=== PATIENT | male | born 1995 | race Caucasian/White ===

== ENCOUNTER 2021-02-19 20:17 | Emergency (ER) | payer OTHER ==
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
[2021-02-19] MEDS ORDERED: Ibuprofen 800 MG Tab PO ONE (20:28)
[2021-02-19 20:53] LABS: BLOOD UREA NITROGEN,BUN 16 mg/dL (7.0-18.0); CARBON DIOXIDE,CO2 27.4 mmol/L (21.0-32.0); CHLORIDE,CL 103 mmol/L (98-107); GLUCOSE RANDOM 105 mg/dL (74-106); POTASSIUM,K 3.4 mmol/L (3.5-5.1); SODIUM,NA 139 mmol/L (136-148)
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
== END 2021-02-19 23:58 | disposition home or self-care (01) ==
LOC: MW.ED 20:17
DX: S83.92XA Sprain of unspecified site of left knee, initial encounter (principal); V49.40XA Driver injured in collision with unspecified motor vehicles in traffic accident, initial encounter
CPT/HCPCS: 36415; 73562; 73590; 73610; 80048; 80307; 85025; 99284; A9270; 99282

== ENCOUNTER 2021-10-04 11:01 | Emergency (ER) | payer BC ==
[2021-10-04 11:51] LABS: CORONAVIRUS COVID-19 NAA POSITIVE (NEGATIVE); INFLUENZA A NAA NEGATIVE (NEGATIVE); INFLUENZA B NAA NEGATIVE (NEGATIVE)
== END 2021-10-04 12:31 | disposition home or self-care (01) ==
LOC: MW.ED 11:01
DX: U07.1 COVID-19 (principal)
CPT/HCPCS: 0240U; 87651; 99283

== ENCOUNTER 2022-05-22 12:47 | Emergency (ER) | payer BC ==
[2022-05-22] MEDS ORDERED: Amoxicillin/Clavulanate K 875-125 MG Tab PO ONE (12:58)
[2022-05-22] MEDS ORDERED: Bacitracin Oint 1 GM U/D Packet TOP ONE (12:58)
[2022-05-22] MEDS ORDERED: Diphtheria,Pertussis(Acell),Tetanus Vaccine 0.5 ML Syringe IM ONE (12:58)
== END 2022-05-22 13:20 | disposition home or self-care (01) ==
LOC: MW.ED 12:47
DX: S01.25XA Open bite of nose, initial encounter (principal); Z23 Encounter for immunization; W54.0XXA Bitten by dog, initial encounter
CPT/HCPCS: 90471; 90715; 99283; A9270

== ENCOUNTER 2023-08-18 18:38 | Emergency (ER) | payer BC ==
[2023-08-18] MEDS ORDERED: Acetaminophen/HYDROcodone 325-5 MG Tab PO ONE (18:56)
[2023-08-18] MEDS ORDERED: Ondansetron 4 MG Tab.DIS PO ONE (18:56)
== END 2023-08-18 20:50 | disposition home or self-care (01) ==
LOC: MW.ED 18:38
DX: S62.617A Displaced fracture of proximal phalanx of left little finger, initial encounter for closed fracture (principal); W23.0XXA Caught, crushed, jammed, or pinched between moving objects, initial encounter
CPT/HCPCS: 29125; 73130; 99283; A9270

== ENCOUNTER 2023-09-08 23:05 | Emergency (ER) | payer BC ==
[2023-09-08] MEDS ORDERED: Sodium Chloride 0.9% 10 ML Syringe FLUSH PRN (23:16)
[2023-09-08] MEDS ORDERED: Sodium Chloride 0.9% 2.5 ML Syringe FLUSH PRN (23:16)
[2023-09-08] MEDS ORDERED: Sodium Chloride 0.9% 1,000 ML IV ONE (23:17)
[2023-09-08 23:23] LABS: BASOPHILS ABSOLUTE AUTO 0.04 K/uL (0.00-0.20); BASOPHILS PERCENT AUTO 0.3 % (0.0-1.0); EOSINOPHILS ABSOLUTE AUTO 0.16 K/uL (0.00-0.45); EOSINOPHILS PERCENT AUTO 1.1 % (0.0-6.0); HEMATOCRIT 42.6 % (42.0-52.0); HEMOGLOBIN 15.4 g/dL (14.0-18.0); IMMATURE GRAN ABSOLUTE AUTO 0.04 K/uL (0.00-0.05); IMMATURE GRAN PERCENT AUTO 0.3 % (0.0-0.4); LYMPHOCYTES ABSOLUTE AUTO 1.02 K/uL (1.00-4.80); LYMPHOCYTES PERCENT AUTO 7.2 % (24.0-44.0); MEAN CORPUSCULAR HEMOGLOBIN 32.9 pg (28.0-32.0); MEAN CORPUSCULAR HGB CONC 36.2 g/dL (32.0-36.0); MEAN PLATELET VOLUME 8.9 fL (9.4-12.4); MONOCYTES ABSOLUTE AUTO 1.01 K/uL (0.00-0.80); MONOCYTES PERCENT AUTO 7.1 % (0.0-8.0); NEUTROPHILS ABSOLUTE AUTO 11.91 K/uL (1.80-7.70); PLATELET COUNT,PLT 333 K/uL (150-400); RED BLOOD CELL COUNT 4.68 M/uL (4.52-5.90); WHITE BLOOD CELL COUNT,WBC 14.18 K/uL (3.9-11.3)
[2023-09-08 23:30] LABS: INR 1.02 (0.86-1.11)
[2023-09-08] MEDS ORDERED: Iopamidol 755 MG/ML 500 ML Multipack Bottle IVPUSH ONE (23:40)
[2023-09-08 23:49] LABS: A/G RATIO 1.3 (0.9-1.6); ALANINE AMINOTRANSFERASE,ALT 25 IU/L (14-63); ALBUMIN 4.5 g/dL (3.4-5.0); ALKALINE PHOSPHATASE 90 U/L (46-116); ASPARTATE AMNIOTRANSFERASE,AST 18 IU/L (15-37); BILIRUBIN TOTAL 0.7 mg/dL (0.2-1.0); BLOOD UREA NITROGEN,BUN 13 mg/dL (7.0-18.0); CALCIUM 9.6 mg/dL (8.5-10.1); CARBON DIOXIDE,CO2 23.8 mmol/L (21.0-32.0); CHLORIDE,CL 101 mmol/L (98-107); CREATININE 1.3 mg/dL (0.8-1.3); GLUCOSE RANDOM 92 mg/dL (74-106); POTASSIUM,K 3.1 mmol/L (3.5-5.1); PROTEIN TOTAL,TP 7.9 g/dL (6.4-8.2); SODIUM,NA 139 mmol/L (136-148)
[2023-09-08 23:50] LABS: ESTIMATED GFR 77 mL/min (>60)
[2023-09-09] MEDS ORDERED: Sodium Chloride 0.9% 1,000 ML IV ONE (02:00)
[2023-09-09] MEDS ORDERED: Ondansetron 4 MG/2 ML SDV IVPUSH ONE (02:00)
[2023-09-09] MEDS ORDERED: Meclizine 25 MG Tab PO ONE (02:03)
[2023-09-09 03:00] LABS: CORONAVIRUS COVID-19 NAA NEGATIVE (NEGATIVE); INFLUENZA A NAA NEGATIVE (NEGATIVE); INFLUENZA B NAA NEGATIVE (NEGATIVE); RESPIRATORY SYNCYTIAL VIR NAA NEGATIVE (NEGATIVE)
== END 2023-09-09 04:39 | disposition home or self-care (01) ==
LOC: MW.ED 23:05
DX: R55 Syncope and collapse (principal); R20.2 Paresthesia of skin; Z79.899 Other long term (current) drug therapy; Z20.822 Contact with and (suspected) exposure to COVID-19
CPT/HCPCS: 0241U; 36415; 70450; 70496; 70498; 71045; 80053; 82947; 84484; 85025; 85610; 93005; 96361; 96374; 99285; A9270; J2405; J3490; J7030; Q9967; 93010; 99284

== ENCOUNTER 2025-03-25 17:53 | Emergency (ER) | payer OTHER, BC ==
[2025-03-25 18:18] LABS: BASOPHILS ABSOLUTE AUTO 0.02 K/uL (0.00-0.20); BASOPHILS PERCENT AUTO 0.2 % (0.0-1.0); EOSINOPHILS ABSOLUTE AUTO 0.35 K/uL (0.00-0.45); EOSINOPHILS PERCENT AUTO 3.9 % (0.0-6.0); IMMATURE GRAN ABSOLUTE AUTO 0.02 K/uL (0.00-0.05); IMMATURE GRAN PERCENT AUTO 0.2 % (0.0-0.4); LYMPHOCYTES ABSOLUTE AUTO 2.47 K/uL (1.00-4.80); LYMPHOCYTES PERCENT AUTO 27.2 % (24.0-44.0); MEAN PLATELET VOLUME 8.5 fL (9.4-12.4); MONOCYTES ABSOLUTE AUTO 0.86 K/uL (0.00-0.80); MONOCYTES PERCENT AUTO 9.5 % (0.0-8.0); NEUTROPHILS ABSOLUTE AUTO 5.37 K/uL (1.80-7.70); NEUTROPHILS PERCENT AUTO 59.0 % (41.0-71.0); NRBC ABSOLUTE 0.00 K/uL (0.00-0.02); NRBC PERCENT 0.0 /100WBC (0.0-0.2); PLATELET COUNT,PLT 313 K/uL (150-400); RED BLOOD CELL COUNT 4.13 M/uL (4.52-5.90); WHITE BLOOD CELL COUNT,WBC 9.09 K/uL (3.9-11.3)
[2025-03-25 18:43] LABS: BLOOD UREA NITROGEN,BUN 14.0 mg/dL (7.0-18.0); CARBON DIOXIDE,CO2 28.0 mmol/L (21.0-32.0); CHLORIDE,CL 102.0 mmol/L (98-107); CREATINE KINASE,CK 167.0 U/L (26-308); CREATININE 1.1 mg/dL (0.8-1.3); EST CRCL DRUG DOSING (CG) 98.54 mL/min; GLUCOSE RANDOM 86.0 mg/dL (74-106); POTASSIUM,K 3.5 mmol/L (3.5-5.1); SODIUM,NA 140.0 mmol/L (136-148)
[2025-03-25 18:50] LABS: ESTIMATED GFR 93.0 mL/min (>60)
== END 2025-03-25 19:45 | disposition home or self-care (01) ==
LOC: MW.ED 17:53
DX: T67.5XXA Heat exhaustion, unspecified, initial encounter (principal); F17.210 Nicotine dependence, cigarettes, uncomplicated; Z79.899 Other long term (current) drug therapy
CPT/HCPCS: 36415; 80048; 82550; 85025; 99283; 99284